=== PATIENT | male | born 1990 | race Caucasian/White ===

== ENCOUNTER 2021-07-09 21:49 | Inpatient (IN) | payer SELFPAY ==
[~2021-07-09] VITALS: Ht 175.3 cm; Wt 68.0 kg
[2021-07-09] MEDS ORDERED: SODIUM CHLORIDE 0.9% 1000ML 1,000 ML IV STA (21:56)
[2021-07-09] MEDS ORDERED: SODIUM CHLORIDE 0.9% 1000ML 1,000 ML IV SCH (22:00)
[2021-07-09 22:23] LABS: BASOPHILS % 0.2 % (0.0-1.0); EOSINOPHILS % 0.1 % (0.0-6.0); HEMATOCRIT 42.2 % (38.2-49.6); HEMOGLOBIN 13.6 g/dL (14.0-18.0); LYMPHOCYTES # (AUTO) 0.5 (1.0-3.2); LYMPHOCYTES % 3.4 % (18.0-39.1); MEAN CORPUSCULAR HEMOGLOBIN 27.6 pg (28-32); MEAN CORPUSCULAR HGB CONC 32.2 g/dL (31-35); MEAN CORPUSCULAR VOLUME 85.6 fL (81-99); MONOCYTES # (AUTO) 0.5 (0.2-0.8); MONOCYTES % 3.4 % (4.4-11.3); NEUTROPHILS # (AUTO) 14.5 (2.1-6.9); NEUTROPHILS % 92.3 % (38.7-80.0); PLATELET COUNT 282 x10e3/uL (140-360); RED BLOOD COUNT 4.93 x10e6/uL (4.3-5.7); RED CELL DISTRIBUTION WIDTH 12.7 % (11.7-14.4)
[2021-07-09] MEDS ORDERED: PIPERACILLIN/TAZOBACTAM 3.375 GM in SODIUM CHLORIDE 0.9% 50ML 50 ML IV SCH (22:30)
[2021-07-09] MEDS ORDERED: PIPERACILLIN/TAZO 4.5 GM 100 ML IV ONE (22:31)
[2021-07-09] MEDS ORDERED: PIPERACILLIN/TAZOBACTAM 4.5 GM in SODIUM CHLORIDE 0.9% 100 ML IV ONE (22:45)
[2021-07-09 22:50] LABS: AMPHETAMINES SCREEN,URINE POSITIVE (NEGATIVE); BENZODIAZEPINES SCREEN,URINE NEGATIVE (NEGATIVE); PHENCYCLIDINE SCREEN,URINE NEGATIVE (NEGATIVE)
[2021-07-09 23:03] LABS: ALBUMIN 3.1 g/dL (3.5-5.0); ALBUMIN/GLOBULIN RATIO 0.6 (0.8-2.0); ANION GAP 18.9 mmol/L (8-16); CALCIUM 9.9 mg/dL (8.4-10.2); CREATININE, SERUM 0.92 mg/dL (0.72-1.25); POTASSIUM 3.9 mmol/L (3.5-5.1)
[2021-07-09] MEDS ORDERED: SODIUM CHLORIDE 0.9% 50ML 50 ML ONE (23:40)
[2021-07-09] MEDS ORDERED: IOPAMIDOL 370 MG/ML 200 ML INFUS..BTL INJ ONE (23:40)
[2021-07-10] MEDS ORDERED: Morphine 4mg Syringe 4 MG/ML INJ IV PRN ×2 (01:00→05:15)
[2021-07-10] MEDS: PIPERACILLIN/TAZOBACTAM 3.375 GM in SODIUM CHLORIDE 0.9% 50ML 50 ML IV SCH ×3 (01:10→05:57)
[2021-07-10 01:25] VITALS: BP 117/66
[2021-07-10 01:30] VITALS: BP 117/66
[2021-07-10 04:07] VITALS: BP 104/57
[2021-07-10] MEDS ORDERED: LITHOBID300 MG PO (04:20)
[2021-07-10] MEDS ORDERED: TRAZODONE HCL100 MG PO (04:20)
[2021-07-10] MEDS ORDERED: PIPERACILLIN/TAZOBACTAM 3.375 GM in SODIUM CHLORIDE 0.9% 50ML 50 ML IV SCH (05:00)
[2021-07-10 08:54] LABS: BASOPHILS % 0.2 % (0.0-1.0); EOSINOPHILS # (AUTO) 0.1 (0.0-0.4); EOSINOPHILS % 0.6 % (0.0-6.0); HEMATOCRIT 37.6 % (38.2-49.6); HEMOGLOBIN 12.3 g/dL (14.0-18.0); LYMPHOCYTES # (AUTO) 0.7 (1.0-3.2); LYMPHOCYTES % 4.8 % (18.0-39.1); MEAN CORPUSCULAR HEMOGLOBIN 27.9 pg (28-32); MEAN CORPUSCULAR HGB CONC 32.7 g/dL (31-35); MEAN CORPUSCULAR VOLUME 85.3 fL (81-99); MONOCYTES # (AUTO) 0.8 (0.2-0.8); MONOCYTES % 5.9 % (4.4-11.3); NEUTROPHILS # (AUTO) 12.1 (2.1-6.9); NEUTROPHILS % 86.6 % (38.7-80.0); PLATELET COUNT 282 x10e3/uL (140-360); RED BLOOD COUNT 4.41 x10e6/uL (4.3-5.7); RED CELL DISTRIBUTION WIDTH 12.5 % (11.7-14.4)
[2021-07-10 09:47] LABS: ALBUMIN 2.8 g/dL (3.5-5.0); ALBUMIN/GLOBULIN RATIO 0.6 (0.8-2.0); ANION GAP 16.4 mmol/L (8-16); CALCIUM 9.4 mg/dL (8.4-10.2); CREATININE, SERUM 0.88 mg/dL (0.72-1.25); POTASSIUM 3.4 mmol/L (3.5-5.1)
== END 2021-07-10 06:23 | disposition left against medical advice (07) | DRG 872 ==
LOC: ER 21:53 → ERHOLD 21:56 → MED/SURG2 07-10 00:56
DX: A41.9 Sepsis, unspecified organism (principal); L03.113 Cellulitis of right upper limb; F19.10 Other psychoactive substance abuse, uncomplicated; F17.200 Nicotine dependence, unspecified, uncomplicated; Z88.2 Allergy status to sulfonamides
CPT/HCPCS: 36415; 73201; 80053; 80307; 83605; 85025; 87040; 94799; 99284; J2270; J2543; J7030; Q9967; U0002

== ENCOUNTER 2021-07-10 08:05 | Inpatient (IN) | payer SELFPAY ==
[~2021-07-10] VITALS: Ht 175.3 cm; Wt 70.3 kg
[~2021-07-10 08:05] MED LIST: LITHOBID300 MG PO; TRAZODONE HCL100 MG PO
[2021-07-10] MEDS ORDERED: CEFEPIME 1 GM in SODIUM CHLORIDE 0.9% 50ML 50 ML IV ONE (08:15)
[2021-07-10] MEDS: SODIUM CHLORIDE 0.9% 1000ML 1,000 ML IV SCH ×4 (08:30→23:41)
[2021-07-10] MEDS: Vancomycin IV 1 GM in SODIUM CHLORIDE 0.9% 250ML 250 ML IV STA ×2 (08:46→14:31)
[2021-07-10] MEDS: LACTATED RINGER'S 1,000 ML INJ ONE ×2 (08:46→09:43)
[2021-07-10] MEDS: PIPERACILLIN/TAZO 4.5 GM 100 ML IV SCH ×3 (08:47→21:00)
[2021-07-10 10:10] VITALS: BP 137/66
[2021-07-10 11:44] VITALS: BP 148/74
[2021-07-10] MEDS ORDERED: Vancomycin IV 1 GM in SODIUM CHLORIDE 0.9% 250ML 250 ML IV ONE (12:00)
[2021-07-10] MEDS: KETOROLAC TROMETHAMINE 30 MG/ML VIAL IV PRN ×2 (13:15→18:57)
[2021-07-10 15:25] VITALS: BP 109/58
[2021-07-10 20:00] VITALS: BP 110/66
[2021-07-10] MEDS ORDERED: Vancomycin IV 1 GM in SODIUM CHLORIDE 0.9% 250ML 250 ML IV SCH (22:30)
[2021-07-11] VITALS: BP 116/62
[2021-07-11] MEDS: KETOROLAC TROMETHAMINE 30 MG/ML VIAL IV PRN (00:44)
[2021-07-11 04:00] VITALS: BP 115/71
== END 2021-07-11 07:20 | disposition left against medical advice (07) | DRG 603 ==
LOC: ER 08:09 → ERHOLD 08:21 → MED/SURG2 09:53
PROVIDERS: ADMIT Internal Medicine; ATTEND Internal Medicine
DX: L03.113 Cellulitis of right upper limb (principal); F19.20 Other psychoactive substance dependence, uncomplicated; Z20.822 Contact with and (suspected) exposure to COVID-19; Z91.19 Patient's noncompliance with other medical treatment and regimen; I10 Essential (primary) hypertension; Z88.2 Allergy status to sulfonamides; D64.9 Anemia, unspecified; M79.601 Pain in right arm; B19.20 Unspecified viral hepatitis C without hepatic coma; K76.9 Liver disease, unspecified
CPT/HCPCS: 93005; 94799; 99284; J1885; J2543; J3370; J7030; J7050; J7121